=== PATIENT | male | born 1995 | race Two or more races ===

== ENCOUNTER 2022-01-04 18:45 | Emergency (ER) | payer OTHER ==
[2022-01-04 19:14] VITALS: BP 118/72; PULSE 88; TEMP 98.3; BMI 23.5
[2022-01-04] MEDS ORDERED: CEPHALEXIN MONOHYDRATE 250 MG CAPSULE (FP) PO ONE (20:41)
[2022-01-04] MEDS ORDERED: CEPHALEXIN MONOHYDRATE 500 MG CAPSULE (UD) ONE (20:42)
[2022-01-04] MEDS ORDERED: CEPHALEXIN MONOHYDRATE 250 MG CAPSULE (FP) ONE (20:43)
== END 2022-01-04 20:46 | disposition home or self-care (01) ==
LOC: FER 18:45
PROC: 0HQGXZZ Repair Left Hand Skin, External Approach (ICD-10-PCS; principal; 2022-01-04)
DX: S61.012A Laceration without foreign body of left thumb without damage to nail, initial encounter (principal); S66.321A Laceration of extensor muscle, fascia and tendon of left index finger at wrist and hand level, initial encounter; W25.XXXA Contact with sharp glass, initial encounter
CPT/HCPCS: 73140-TC-LT-FY; 99282-25